=== PATIENT | female | born 1970 | race Caucasian/White ===

== ENCOUNTER 2020-04-07 13:27 | Emergency (ER) | payer OTHER, SELFPAY ==
[2020-04-07 13:34] VITALS: BP 134/82; PULSE 85; RESP 18; TEMP 37.1; O2SAT 98
--- NOTE | 2020-04-07 13:41 | ED.GENADULT ---
HPI - General Adult General Chief complaint: Upper Respiratory Infection Stated complaint: ear pain/sore throat Time Seen by Provider: 04/07/20 13:41 Source: patient Mode of arrival: ambulatory Limitations: no limitations History of Present Illness HPI narrative: 49-year-old female patient presents to the [facility] with complaints of sore throat and bilateral ear pain for the past 2 days. Denies any fevers, body aches or chills. Denies any cough, chest pain or shortness of breath. Denies any abdominal pain, nausea, vomiting or diarrhea. Patient states she has taken some ibuprofen for her symptoms. Patient is an active smoker. Related Data Allergies Allergy/AdvReac Type Severity Reaction Status Date / Time No Known Allergies Allergy Verified 04/07/20 13:44 Review of Systems Review of Systems: Narrative: CONSTITUTIONAL: Denies fever, chills, or sweats. EYES: Denies visual changes, redness, or discharge. ENT: Denies rhinorrhea, congestion, positive sore throat, and bilateral otalgia. CARDIOVASCULAR: Denies chest pain, palpitations, or edema. RESPIRATORY: Denies cough or dyspnea. GASTROINTESTINAL: Denies abdominal pain, nausea, vomiting, or diarrhea. GENITOURINARY: Denies dysuria or hematuria. SKIN: Denies rash or itching. MUSCULOSKELETAL: Denies back pain, joint pain, or myalgia. NEUROLOGIC: Denies headache, numbness, or weakness. PSYCHIATRIC: Denies anxiety or depression. PMFSH Past Medical History Medical History (Updated 04/07/20 @ 13:55 by MONTSERRAT Griffith) Depression Hypertension Social History Social History (Updated 04/07/20 @ 13:55 by MONTSERRAT Griffith) Smoking status: Current every day smoker Comments At the time of my signature I agree with nursing past medical history, surgical, social, and family history. There is no relevant family history pertinent to the presenting complaint. Exam Narrative: Exam Narrative: GENERAL: Well-appearing, well-nourished, and in no acute distress. HEAD: Normocephalic, atraumatic. No tenderness noted to frontal maxillary sinuses on palpation EYES: PERRLA and EOMI. ENT: Nares with erythema and edema noted bilaterally at the both nares appear dry with some erythema, no rhinorrhea or epistaxis. Mucous membranes moist. Posterior pharynx with some erythema and 1+ tonsil regiment. No exudates or lesions present. The left ear is clear with no erythema or foreign bodies to the canal. The right ear does have a tiny bit of fluid noted behind it but no erythema, no bulging no foreign bodies to the canals. NECK: Supple. No lymphadenopathy CHEST: Clear to auscultation. No respiratory distress. Patient able talk in clear complete sentences. No tripoding noted. HEART: Regular rate and rhythm. No murmur heard. Normal peripheral pulses. ABDOMEN: Soft, nontender, nondistended, normal active bowel sounds. EXTREMITIES: Normal range of motion. No edema. SKIN: Warm, dry, no rash. NEURO: No focal deficits. Alert and oriented x3. Course Vital Signs Vital signs: Vital Signs Temperature 37.1 C 04/07/20 13:34 Pulse Rate 85 04/07/20 13:34 Respiratory Rate 18 04/07/20 13:34 Blood Pressure 134/82 04/07/20 13:34 Pulse Oximetry 98 04/07/20 13:34 Temperature 37.1 C 04/07/20 13:34 Pulse Rate 85 04/07/20 13:34 Respiratory Rate 18 04/07/20 13:34 Blood Pressure 134/82 04/07/20 13:34 Pulse Oximetry 98 04/07/20 13:34 Vital signs reviewed. The patient has been informed that they may have pre-hypertension or Hypertension based on a BP reading in the department. I recommend that the patient call the primary care provider listed on their discharge instructions or a physician of their choice this week to arrange follow up for further evaluation of possible pre-hypertension or Hypertension Medical Decision Making Differential Diagnosis Differential Diagnosis: Differential diagnosis: Viral pharyngitis, pharyngitis, group A strep, infectious mononucleosis, gonoco
== END 2020-04-07 13:55 | disposition home or self-care (01) ==
PROVIDERS: Emergency Provider Nurse Practitioner Family; PCP Family Medicine
DX: H73.891 Other specified disorders of tympanic membrane, right ear (principal); J02.9 Acute pharyngitis, unspecified; I10 Essential (primary) hypertension; F17.200 Nicotine dependence, unspecified, uncomplicated
CPT/HCPCS: 87081; 87880; 99213; G0463